=== PATIENT | male | born 1975 | race Caucasian/White ===

== ENCOUNTER 2021-10-31 17:41 | Inpatient (IN) ==
[~2021-10-31 17:41] MED LIST: ALUMINUM/MAGNES/SIMETH MAX STR 30 ML UDCUP PO PRN; DOCUSATE SODIUM 100 MG CAPSULE PO PRN; ENOXAPARIN 60 MG/0.6 ML SYRINGE ONE; EPTIFIBATIDE 20,000 MCG/10 ML VIAL ONE; EPTIFIBATIDE 75 MG/100 ML BOTTLE IV ONE; EPTIFIBATIDE 75 MG/100 ML BOTTLE IV SCH; MAGNESIUM SULF RIDER 2 GM/50 ML PREMIX IV PRN; MAGNESIUM SULF RIDER 4 GM/100 ML PREMIX IV PRN; MIDAZOLAM 2 MG/2 ML VIAL ONE; NITROGLYCERIN DRIP 50 MG/250 ML BOTTLE IV ONE; NITROGLYCERIN SL 0.4 MG TABLET SL PRN; ONDANSETRON 4 MG/2 ML VIAL IV PRN; POTASSIUM CHLORIDE 20 MEQ TABLET PO PRN; PROMETHAZINE 25 MG TABLET PO PRN; SODIUM CHLORIDE 0.9% 1,000 ML IV SCH; ZALEPLON 5 MG CAPSULE PO PRN; diphenhydrAMINE CAP 25 MG CAPSULE PO PRN; fentaNYL 100 MCG/2 ML VIAL ONE; guaiFENesin/DM ER 600-30 MG TABLET PO PRN; hydrALAZINE 20 MG/1 ML VIAL IV PRN
[2021-10-31] MEDS ORDERED: MORPHINE 4 MG/1 ML VIAL IV PRN (18:14)
[2021-10-31] MEDS: TICAGRELOR 90 MG TABLET PO SCH (21:10)
[2021-10-31] MEDS: ROSUVASTATIN 20 MG TABLET PO SCH (21:10)
[2021-10-31] MEDS: METOPROLOL TARTRATE 25 MG TABLET PO SCH (21:10)
[2021-11-01 06:56] LABS: Basophils # 0.1 10*3/uL (0.0-0.2); Basophils % 0.4 % (0.0-0.8); Eosinophils # 0.2 10*3/uL (0.0-0.87); Eosinophils % 1.3 % (0.00-10.9); Hematocrit 41.1 VOL% (42.0-52.0); Immature Granulocytes % 0.6 %; Immature Granulocytes Absolute 0.07 #; Lymphocytes # 1.6 10*3/uL (1.4-4.0); Lymphocytes % 13.9 % (21.2-54.2); Mean Corpuscular HGB Conc 34.1 GM/DL (32-36); Mean Corpuscular Volume 90.9 FL (87-102); Mean Platelet Volume 12.9 FL (9.6-12.0); Monocytes % 8.3 % (1.7-12.7); Neutrophils % 75.5 % (38.7-73.9); Platelet Count 183 T/CUMM (130-400); Red Blood Count 4.52 MC/CUMM (3.8-5.5); Red Cell Distribution Width 12.9 % (9.3-17.3); White Blood Count 11.2 T/CUMM (4-12)
[2021-11-01 07:16] LABS: Albumin 3.2 G/DL (3.4-5.0); Bilirubin,Total 1.6 MG/DL (0.20-1.00); Calcium 8.3 MG/DL (8.5-10.1); Osmolality,Calculated 278.5 MOS/KG (273-304); Potassium 4.1 MMOL/L (3.5-5.1); Risk Ratio 3.53; Thyroid Stimulating Hormone 3.07 uIU/ml (0.358-3.74); Total Protein 7.1 G/DL (6.4-8.2); VLDL Cholesterol 21.6 MG/DL
[2021-11-01 07:21] LABS: CKMB % 7.9 %
[2021-11-01 07:23] LABS: High Sensitive Troponin I* 13500.8 ng/L (0-78)
[2021-11-01 08:01] LABS: Platelet Estimate Normal
[2021-11-01] MEDS: METOPROLOL TARTRATE 25 MG TABLET PO SCH ×2 (09:09→20:16)
[2021-11-01] MEDS: PANTOPRAZOLE 40 MG TABLET PO SCH (09:09)
[2021-11-01] MEDS: TICAGRELOR 90 MG TABLET PO SCH ×2 (09:09→20:16)
[2021-11-01] MEDS: ASPIRIN EC 81 MG TABLET PO SCH (09:09)
[2021-11-01] MEDS: VALSARTAN 80 MG TABLET PO SCH (11:53)
[2021-11-01] MEDS: ACETAMINOPHEN 325 MG TABLET PO PRN ×2 (13:30→20:16)
[2021-11-01] MEDS: ROSUVASTATIN 20 MG TABLET PO SCH (20:16)
[2021-11-02] MEDS: ASPIRIN EC 81 MG TABLET PO SCH (09:19)
[2021-11-02] MEDS: PANTOPRAZOLE 40 MG TABLET PO SCH (09:19)
[2021-11-02] MEDS: VALSARTAN 80 MG TABLET PO SCH (09:19)
[2021-11-02] MEDS: TICAGRELOR 90 MG TABLET PO SCH (09:19)
[2021-11-02] MEDS: METOPROLOL TARTRATE 25 MG TABLET PO SCH (09:19)
[2021-11-02 11:13] LABS: Albumin 3.4 G/DL (3.4-5.0); Bilirubin,Total 0.4 MG/DL (0.20-1.00); Calcium 8.6 MG/DL (8.5-10.1); Osmolality,Calculated 279.4 MOS/KG (273-304); Potassium 3.9 MMOL/L (3.5-5.1); Total Protein 7.5 G/DL (6.4-8.2)
== END 2021-11-02 14:09 | disposition home or self-care (01) | DRG 251 ==
LOC: N.CL 17:41 → N.CC 17:42
PROVIDERS: ADMIT Internal Medicine Cardiovascular Disease; ATTEND Internal Medicine Cardiovascular Disease
PROC: CLCCHCL (ICD-10-PCS; 2021-10-31 15:45)